=== PATIENT | female | born 1980 | race Caucasian/White ===

== ENCOUNTER 2016-09-13 23:06 | Inpatient (IN) | payer BC ==
[2016-09-13 23:49] LABS: ROM Internal QC QC Line Present
[2016-09-14] MEDS ORDERED: Oxytocin in LR* 20 UNITS/1,000 ML BAG IVPB SCH ×2 (02:00→14:00)
[2016-09-14 02:54] LABS: Hematocrit 39 % (35-47); Hemoglobin 13.2 g/dl (12.0-16.0); Mean Corpuscular HGB Conc 34 g/dl (31-36); Mean Corpuscular Hemoglobin 33 pg (27-31); Mean Corpuscular Volume 97 fL (80-97); Mean Platelet Volume 10 um3 (7.4-10.4); Red Cell Distribution Width 14 % (10.5-15); White Blood Count 8.9 10^3/ul (3.5-10.8)
[2016-09-14 02:56] LABS: Add Diff/Slide Review? Slide Review Added; Comments Flag Yes
[2016-09-14] MEDS ORDERED: OBEPIDURAL* 250 ML ONE (06:43)
[2016-09-14] MEDS ORDERED: Sodium Citrate/Citric Acid* 15 ML UDC PO PRN (07:27)
[2016-09-14] MEDS ORDERED: Phenylephrine IV* 40 MCG/ML 10 ML SYRINGE IV PUSH PRN ×2 (07:27)
[2016-09-14] MEDS ORDERED: EPHEDrine (Pressors)* 50 MG/ML VIAL IV PUSH PRN ×2 (07:27)
[2016-09-14] MEDS ORDERED: Famotidine TAB* 20 MG PO PRN (07:27)
[2016-09-14] MEDS ORDERED: OBEPIDURAL* 250 ML EPIDURAL SCH (08:00)
[2016-09-14] MEDS ORDERED: Acetaminophen TAB* 325 MG PO PRN (13:02)
[2016-09-14] MEDS ORDERED: Glycerin ADULT SUPP PR PRN (13:02)
[2016-09-14] MEDS ORDERED: oxyCODONE/Acetamin 5/325 MG* TAB PO PRN (13:03)
[2016-09-14] MEDS: Witch Hazel PAD* JAR TOPICAL PRN (16:36)
[2016-09-14] MEDS: Docusate CAP* 100 MG PO SCH ×2 (16:36→21:17)
[2016-09-14] MEDS: Ibuprofen TAB* 600 MG PO PRN ×2 (16:36→23:06)
[2016-09-14] MEDS: Dibucaine 1% 28.35 GM TUBE PR PRN (16:37)
[2016-09-15 06:45] LABS: Hematocrit 29 % (35-47); Hemoglobin 9.7 g/dl (12.0-16.0); Mean Corpuscular HGB Conc 34 g/dl (31-36); Mean Corpuscular Hemoglobin 33 pg (27-31); Mean Corpuscular Volume 98 fL (80-97); Mean Platelet Volume 10 um3 (7.4-10.4); Red Blood Count 2.92 10^6/ul (4.0-5.4); Red Cell Distribution Width 14 % (10.5-15); White Blood Count 12.2 10^3/ul (3.5-10.8)
[2016-09-15] MEDS: Ibuprofen TAB* 600 MG PO PRN ×3 (07:18→22:01)
[2016-09-15] MEDS: Docusate CAP* 100 MG PO SCH ×3 (08:38→22:01)
[2016-09-15] MEDS: Ferrous Gluconate TAB* 324 MG TAB PO SCH ×2 (08:38→22:02)
[2016-09-16 08:12] VITALS: BP 102/67
[2016-09-16] MEDS: Ferrous Gluconate TAB* 324 MG TAB PO SCH (08:14)
[2016-09-16] MEDS: Ibuprofen TAB* 600 MG PO PRN (08:14)
[2016-09-16] MEDS: Docusate CAP* 100 MG PO SCH (08:14)
[2016-09-16] MEDS: Witch Hazel PAD* JAR TOPICAL PRN (12:11)
[2016-09-16] MEDS: Dibucaine 1% 28.35 GM TUBE PR PRN ×2 (12:11→12:12)
== END 2016-09-16 12:55 | disposition home or self-care (01) | DRG 542 ==
LOC: MCHOBOUT 23:06 → MCHOB 23:59
PROVIDERS: ADMIT Obstetrics & Gynecology; ATTEND Obstetrics & Gynecology
PROC: 10E0XZZ Delivery of Products of Conception, External Approach (ICD-10-PCS; principal; 2016-09-14)
PROC: 0DQR0ZZ Repair Anal Sphincter, Open Approach (ICD-10-PCS; 2016-09-14)
DX: O48.0 Post-term pregnancy (principal); O70.20 Third degree perineal laceration during delivery, unspecified; Z37.0 Single live birth; Z3A.40 40 weeks gestation of pregnancy
CPT/HCPCS: 36415; 84112; 85025; 86850; 86900; 86901; A9270-GY

== ENCOUNTER 2018-06-10 09:30 | Emergency (ER) | payer SELFPAY ==
[2018-06-10 10:10] VITALS: BP 110/73
[2018-06-10] MEDS ORDERED: Ketorolac INJ* 60 MG/2 ML VIAL IM ONE (10:43)
[2018-06-10] MEDS ORDERED: Ondansetron ODT TAB* 4 MG SL ONE (10:43)
--- NOTE | 2018-06-10 10:44 | UC ---
Headache HPI - HPI Summary HPI Summary: 37 yo female presents with headache and neck spasms for the last 4 days. She tells me that she gets tension in her neck periodically and this will cause her to have a headache that comes from her neck, to the back of her head, and radiates to the front. Her headache began about 4 days ago as a dull ache and neck spasm that was relieved with ibuprofen. Her headache returned the next day and has been intermittent since. Ibuprofen will help, but as soon as it wears off the headache will return. Had some slight dizziness once, but not currently. Has felt more fatigued over the last week or so and has had some sinus pain and nausea. She is eating and drinking well. Denies vision changes, weakness, SOB, chest pain, abdominal pain, vomiting, diarrhea, or dysuria. - History Of Current Complaint Chief Complaint: UCHeadache Stated Complaint: HEADACHE,BACK PAIN Time Seen by Provider: 06/10/18 10:07 Hx Obtained From: Patient Hx Last Menstrual Period: 05/20/18 Onset/Duration: Gradual Onset Initially Headache Was: Moderate Currently Pain Is: Moderate Pain Intensity: 6 Pain Scale Used: 0-10 Numeric - Allergies/Home Medications Allergies/Adverse Reactions: Allergies Allergy/AdvReac Type Severity Reaction Status Date / Time No Known Allergies Allergy Verified 06/10/18 10:10 PMH/Surg Hx/FS Hx/Imm Hx - Additional Past Medical History Additional PMH: None - Surgical History Surgical History: Yes Surgery Procedure, Year, and Place: eye surgery 1982. 1996 - Family History Known Family History: Positive: None - Social History Occupation: Employed Full-time Lives: With Family Alcohol Use: None Substance Use Type: None Smoking Status (MU): Never Smoked Tobacco - Immunization History Most Recent Influenza Vaccination: 02/2016 Most Recent Pneumonia Vaccination: not indicated Review of Systems All Other Systems Reviewed And Are Negative: Yes Constitutional: Positive: Negative Skin: Positive: Negative Eyes: Positive: Negative ENT: Positive: Negative Respiratory: Positive: Negative Cardiovascular: Positive: Negative Gastrointestinal: Positive: Nausea Genitourinary: Positive: Negative Neurovascular: Positive: Negative Musculoskeletal: Positive: Negative Neurological: Positive: Headache Psychological: Positive: Negative Physical Exam - Summary Physical Exam Summary: GENERAL: NAD. WDWN. No pain distress. SKIN: No rashes, sores, ulcers, masses, lesions. HEENT: Head: AT/NC Eyes: PERRLA. EOM intact. Conjunctiva clear without inflammation or discharge. Ears: Hearing grossly normal. TMs intact, no bulging, erythema, or edema. Nose: Nasal mucosa pink and moist. Mild TTP maxillary sinus. Throat: Posterior oropharynx without exudates, erythema, or tonsillar enlargement. Uvula midline. NECK: Supple. Nontender. No lymphadenopathy. CHEST: CTAB. No r/r/w. No accessory muscle use. Breathing comfortably and in no distress. CV: RRR. Without m/r/g. Pulses intact. Brisk cap refill. ABDOMEN: Soft. NTTP. No distention or guarding. No CVA tenderness. Bowel sounds present MSK: Neck muscles and upper trapezius muscles with mild TTP. Negative spurlings. No verebral tenderness. FROM in B/L UEs and LEs with symmetric strength. NEURO: A&Ox3. 3 word recall, remote, recent memory, ability to follow 2-step directions, and attention intact. CN: II: Peripheral de león intact. Vision normal. III, IV, : EOMI. No nystagmus. PERRLA. V: Sensations intact and symmetric. Opens mouth and clenches teeth. VII: No facial asymmetry. Forehead wrinkles. Grins, shuts eyes, frowns, puffs cheeks. VIII: Hearing intact to finger rub. IX, X: Swallows and coughs. Uvula midline. XI: Shrugs shoulders. Turns head against resistance. XII: No tongue deviation Jawnxw-tz-daqk are intact. Gait with normal base. Romberg: maintains balance, no pronator drift. Normal speech. No facial drooping. PSYCH: Age appropriate behavior. Triage Information Reviewed: Yes Vital Signs: Initial Vital Signs Temp 98 F 06/10/18 10:07 Pulse 110 06/10/18 10:07 Resp 20 06/10/18 10:07 BP 110/73 06/10/18 10:07 Pulse Ox 100 06/10/18 10:07 Vital Signs Reviewed: Yes Headache Course/Dx - Course Course Of Treatment: In the clinic pt was given toradol and zofran and reported feeling improvement of her symptoms and she wished to be discharged. Suspect tension headache and will rx for naproxen and zofran to take prn. F/u if symptoms persist or worsen. - Differential Dx/Diagnosis Provider Diagnosis: Tension headache Discharge - Sign-Out/Discharge Documenting (check all that apply): Patient Departure All imaging exams completed and their final reports reviewed: No Studies - Discharge Plan Condition: Stable Disposition: HOME Prescriptions: Naproxen [Naproxen 500 mg tab] 500 mg PO BID PRN #30 tablet PRN Reason: Pain Ondansetron ODT TAB* [Zofran 4 MG Odt TAB*] 4 mg PO Q6H PRN #12 tab.odt PRN Reason: Nausea Patient Education Materials: Acute Headache (DC) Referrals: Jayla Madison MD [Primary Care Provider] - Additional Instructions: If you develop a fever, shortness of breath, chest pain, new or worsening symptoms - please call your PCP or go to the ED. 1) If your symptoms worsen or do not continue to improve - please be rechecked - Billing Disposition and Condition Condition: STABLE Disposition: Home
[2018-06-10] MEDS ORDERED: Ketorolac INJ* 30 MG/ML 1 ML VIAL IM ONE (10:50)
[2018-06-10] MEDS ORDERED: Ondansetron ODT TAB* 4 MG ONE (10:57)
== END 2018-06-10 11:45 | disposition home or self-care (01) ==
LOC: UCEAST 09:30
DX: R51 Headache (principal); M62.838 Other muscle spasm; M54.9 Dorsalgia, unspecified
CPT/HCPCS: 81003; 84702; 99212; A9270-GY; G0463; J1885

== ENCOUNTER 2019-08-13 16:24 | Emergency (ER) | payer BC ==
--- OUTSIDE RECORDS SUMMARY | 2019-08-13 16:31 | XMS REPORT | Continuity of Care Document ---
:1980 External Reference #:[id number] Author Name Brock Jorgensen M.D. 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 Onset: 04/14/2019 Skin sensation disturbance Brock Jorgensen M.D. Onset: 04/14/2019 Headache Brock Jorgensen M.D. Onset: 04/14/2019 Neck pain Brock Jorgensen M.D. Onset: 04/14/2019 Social History Type Date Description Comments Sex Unknown ETOH Use Occasionally consumes 2-4 drinks a weeks alcohol Tobacco Use Start: Unknown Patient has never smoked Recreational Drug Use Never Used Drugs Smoking Status Reviewed: 07/21/19 Patient has never smoked Exercise Type/Frequency Exercises regularly Allergies, Adverse Reactions, Alerts Description No Known Drug Allergies Medications Active Medications SIG Qnty Indications Ordering Provider Date Multiple Vitamin 1 by mouth every Unknown Tablets day Melatonin ER take one Unknown 3mg Tablets ER tablet/capsule by mouth at bedtime. 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 Echinacea Goldenseal Tincture daily Unknown Plus Capsules Immunizations CPT Code Status Date Vaccine Lot # [id number] Given 03/18/2018 Influenza Virus Vaccine, Quadrivalent, Split, Preservative Free Vital Signs Date Vital Result Comment 07/21/2019 4:03pm Height 64 inches 5'4" Weight 100.00 lb Heart Rate 85 /min BP Systolic 100 mmHg BP Diastolic 68 mmHg BMI (Body Mass Index) 17.2 kg/m2 07/09/2019 8:28am Heart Rate 72 /min Respiratory Rate 16 /min Body Temperature 97.8 F Results Description No Information Available Procedures Date Code Description Status 03/11/2014 55257520 Mammogram Completed Medical Devices Description No Information Available Encounters Type Date Location Provider Dx Diagnosis Office Visit 07/09/2019 [facility] Kenyetta Luciano, N64.59 Other signs and 8:30a [facility] Work[facility] symptoms in breast Office Visit 05/22/2019 [facility] Kenyetta Luciano N64.59 Other signs and 9: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 07/21/2019 R51 Headache Brock Jorgensen M.D. 07/21/2019 R20.2 Paresthesia of skin Brock Jorgensen M.D. 07/21/2019 R53.83 Other fatigue Brock Jorgensen M.D. 07/09/2019 N64.59 Other signs and symptoms in breast Kenyetta Luciano MD 05/22/2019 N64.59 Other signs and symptoms in breast Kenyetta Luciano MD 04/14/2019 M54.2 Cervicalgia Brock Jorgensen M.D. 04/14/2019 R51 Headache Brock Jorgensen M.D. 04/14/2019 R20.2 Paresthesia of skin Brock Jorgensen M.D. 04/14/2019 R53.83 Other fatigue Brock Jorgensen M.D. Plan of Treatment Future Appointment(s):12/18/2019 9:15 am - Brock Jorgensen M.D. at [facility]07/21/2019 - Brock Jorgensen M.D.M54.2 CervicalgiaFollow up:Follow up in 6 [id number] EkatuihiZ69.2 Paresthesia of skinR53.83 Other fatigue Functional Status Description No Information Available Mental Status Description No Information Available Referrals Description No Information Available
--- OUTSIDE RECORDS SUMMARY | 2019-08-13 16:31 | XMS REPORT | Continuity of Care Document ---
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 Onset: 04/14/2019 Skin sensation disturbance Brock Jorgensen M.D. Onset: 04/14/2019 Headache Brock Jorgensen M.D. Onset: 04/14/2019 Neck pain Brock Jorgensen M.D. Onset: 04/14/2019 Social History Type Date Description Comments Sex Unknown ETOH Use Occasionally consumes 2-4 drinks a weeks alcohol Tobacco Use Start: Unknown Patient has never smoked Smoking Status Reviewed: 07/09/19 Patient has never smoked Exercise Exercises regularly Type/Frequency Allergies, Adverse Reactions, Alerts Description No Known [...] Capsules Herbal Supplement From as directed Unknown [employer] [place] Wort Tincture Unknown 150mg Capsules Echinacea Goldenseal Tincture daily Unknown Plus Capsules Immunizations CPT Code Status Date Vaccine Lot # [id number] Given 03/18/2018 Influenza Virus Vaccine, Quadrivalent, Split, Preservative Free Vital Signs Date Vital Result Comment 07/09/2019 8:28am Heart Rate 72 /min Respiratory Rate 16 /min Body Temperature 97.8 F 05/22/2019 9:03am Height 64 inches 5'4" Weight 100.00 lb Heart Rate 80 /min BP Systolic Sitting 108 mmHg BP Diastolic Sitting 66 mmHg Respiratory Rate 16 /min Body Temperature 98.6 F BMI (Body Mass Index) 17.2 kg/m2 Results Description No Information Available Procedures Date Code Description Status 03/11/2014 [id number] Mammogram Completed Medical Devices Description No Information Available Encounters Type Date Location Provider Dx Diagnosis Office Visit 05/22/2019 [facility] Kenyetta Luciano, N64.59 Other signs and 9:00a [facility] symptoms in breast Office Visit 04/14/2019 [facility] Brock Jorgensen M54.2 Cervicalgia 3:45p [facility] R51 Headache R20.2 Paresthesia of skin R53.83 Other fatigue Assessments Date Code Description Provider 05/22/2019 N64.59 Other signs and symptoms in breast Kenyetta Luciano MD 04/14/2019 M54.2 Cervicalgia Brock Jorgensen M.D. 04/14/2019 R51 Headache Brock Jorgensen M.D. 04/14/2019 R20.2 Paresthesia of skin Brock Jorgensen M.D. 04/14/2019 R53.83 Other fatigue Brock Jorgensen M.D. Plan of Treatment Future Appointment(s):07/21/2019 4:00 pm - Brock Jorgensen M.D. at [facility] Functional Status Description No Information Available Mental Status Description No Information Available Referrals Description No Information Available
[2019-08-13 16:33] VITALS: BP 116/73
--- NOTE | 2019-08-13 17:28 | UC ---
Ear Complaint HPI - HPI Summary HPI Summary: 39yo female presenting with right earache x3-4 months. Patient states it constantly feels "clogged and full." Unsure of hearing changes. Denies drainage from the ear. Denies recent URI or allergies. Denies left ear symptoms. Denies fever and chills. Patient states she has an ENT appt next month but "wants to make sure nothing is really wrong." - History of Current Complaint Chief Complaint: UCEar Stated Complaint: EAR PLUGGED Hx Obtained From: Patient Hx Last Menstrual Period: 08/11/2019 Pain Intensity: 0 - Allergies/Home Medications Allergies/Adverse Reactions: Allergies Allergy/AdvReac Type Severity Reaction Status Date / Time No Known Allergies Allergy Verified 08/13/19 16:29 Home Medications: Home Medications Ibuprofen TAB* [Motrin TAB* 400 MG] 400 mg PO DAILY PRN 12/16/18 [History Confirmed 12/16/18] Multivitamin [Multivitamins] 1 cap PO DAILY 08/13/19 [History Confirmed 08/13/19 ] PMH/Surg Hx/FS Hx/Imm Hx Previously Healthy: Yes - Surgical History Surgical History: Yes Surgery Procedure, Year, and Place: eye muscle surgery 1982. 1996 - Family History Known Family History: Positive: None, Non-Contributory - Social History Alcohol Use: Weekly Substance Use Type: None Smoking Status (MU): Never Smoked Tobacco - Immunization History Most Recent Influenza Vaccination: 02/2016 Most Recent Pneumonia Vaccination: not indicated Review of Systems All Other Systems Reviewed And Are Negative: Yes Constitutional: Positive: Negative ENT: Positive: Ear Ache - right. Negative: Sore Throat, Sinus Congestion Respiratory: Positive: Negative Cardiovascular: Positive: Negative Gastrointestinal: Positive: Negative Musculoskeletal: Positive: Negative Neurological/Mental Status: Positive: Negative Physical Exam - Summary Physical Exam Summary: Vital Signs Reviewed: Yes A+Ox3, no distress Eyes: Conjunctiva Clear ENT: Hearing grossly normal, TM x 2 clear, no cerumen in either ear, EACs without erythema or edema, no nasal congestion, moist, uvula midline, no exudate , no erythema Neck: Positive: Supple Respiratory: Positive: No respiratory distress, No accessory muscle use + CTA throughout no w/r Cardiovascular: RRR nl s1, s2 no m/r Musculoskeletal Exam: AGEE x 4 without difficulty Neurological: Positive: Alert Psychological: Positive: age appropriate behavior Skin: Positive: no rash, no ecchymosis Vital Signs: Initial Vital Signs Temp 99.0 F 08/13/19 16:29 Pulse 91 08/13/19 16:29 Resp 18 08/13/19 16:29 BP 116/73 08/13/19 16:29 Pulse Ox 100 08/13/19 16:29 Ear Complaint Course/Dx - Course Course Of Treatment: Patient presented with right earache 3-4 months. TMs intact and without signs of infection bilaterally. No cerumen impaction. EACs clear without edema or erythema. Discussed no signs of infection or effusion with patient. Instructed to take an [id number] decongestant for any possible congestion in the ears. Instructed to follow-up with ENT appointment if symptoms persist. Patient voiced understanding and agreed with treatment plan. - Differential Dx/Diagnosis Provider Diagnosis: Earache symptoms in right ear Discharge ED - Sign-Out/Discharge Documenting (check all that apply): Patient Departure All imaging exams completed and their final reports reviewed: No Studies - Discharge Plan Condition: Stable Disposition: HOME Patient Education Materials: Earache (ED) Referrals: Luigi Evans MD [Medical Doctor] - Additional Instructions: As discussed, there are no signs of an ear infection today. You may take an [id number]-[id number] decongestant to help relieve any congestion that may be present. You may continue with seck-mwj-mzjstla pain medications as directed. Follow-up with your ENT as scheduled or with the ENT referral listed below for further evaluation if symptoms persist. - Billing Disposition and Condition Condition: STABLE Disposition: Home
== END 2019-08-13 17:58 | disposition home or self-care (01) ==
LOC: UCEAST 16:24
DX: H92.01 Otalgia, right ear (principal)
CPT/HCPCS: 99211; G0463